=== PATIENT | female | born 1950 | race Caucasian/White ===

== ENCOUNTER → 2019-05-29 14:22 | Outpatient (CLI) | payer MEDICARE, OTHER, SELFPAY ==
--- NOTE | 2019-05-29 15:51 | PM.TREADMILL ---
Cardiac Stress Test Report Referral & Results Date Patient Seen: 05/29/19 Time Patient Seen: 15:51 Requesting provider: Laura Brandon Indication: hyperlipidemia Rest ECG: sinus rhythm Procedure Note: Standard Adarsh protocol, 7:01, 7 METS Good exercise capacity, RENETTA -14% Normal hemodynamic response to exercise No chest pain or anginal symptoms >[address] depression with slightl upsloping in II, III, avf, V5, V6 Impression: nonconclusive exercise stress test Please note: Actual ECG tracings can be found in the PACS system.
== END ==
PROVIDERS: PCP Family Medicine; Referring Provider Family Medicine; Visit Provider Family Medicine
DX: E78.2 Mixed hyperlipidemia (principal); Z82.49 Family history of ischemic heart disease and other diseases of the circulatory system
CPT/HCPCS: 93016; 93017